=== PATIENT | female | born 1950 | race Caucasian/White ===

== ENCOUNTER 2022-01-16 09:42 | Inpatient (IN) | payer MEDICARE, OTHER ==
[~2022-01-16] VITALS: Ht 157.5 cm; Wt 96.7 kg
--- NOTE | 2022-01-16 15:37 | NUR ---
PT TO MED-SURG VIA STRETCHER STANDS TO TRANSFER TO BED. FRESH H20 AT BEDSIDE ALONG WITH KLEENEX AND OTHER COMFORT ITEMS. PT ORIENTED TO ROOM AND CALL BUTTON. AGREES TO CALL FOR ANY NEEDS.
--- NOTE | 2022-01-16 16:58 | NUR ---
PT DENIES PAIN IN INDEX FINGER. ASSISTED INTO A SLING FOR ELEVATION. CALL LIGHT AND NEEDED ITEMS IN REACH.
--- NOTE | 2022-01-16 17:39 | NUR ---
PT SITTING UP WITH EVENING MEAL CONTINUES TO DENY NEED OF PAIN MEDICATIONS ARM REMAINS IN SLING WITH HAND ELEVATED. CALL LIGHT AND NEEDED ITEMS IN REACH. PT UP TO TOILET INDEPENDANTLY EARLIER SHE IS STEADY ON HER FEET AND ORIENTED X4
--- NOTE | 2022-01-16 23:20 | NUR ---
Patient appears to be sleeping. RUE remains elevated by pillow sling. Saline locked. Call light within reach. Will continue to monitor.
--- NOTE | 2022-01-17 00:53 | NUR ---
PT RESTING IN BED WITH EYES CLOSED. RESPIRATIONS EVEN. CALL LIGHT IN REACH.
--- NOTE | 2022-01-17 01:50 | NUR ---
PT AWAKE UPON ENTERING ROOM. RUE IN PILLOW SLING. PT REPORTS SX IMPROVING WITH ELEVATION. PT DENIES PAIN. ASSISTED TO REPOSITION FOR COMFORT. VS AND I&O OBTAINED. IV ABX INFUSING WNL. NO FURTHER NEEDS.
--- NOTE | 2022-01-17 04:20 | NUR ---
PT RESTING IN BED. EYES CLOSED. RUE ELEVATED IN PILLOW SLING. CALL LIGHT IN REACH.
--- NOTE | 2022-01-17 06:40 | NUR ---
VS AND I&O COMPLETE. PT WITH RUE ELEVATED IN PILLOW SLING. DENIES PAIN. CMS INTACT. ASSISTED TO REPOSITION FOR COMFORT. NO FURTHER NEEDS AT THIS TIME. CALL LIGHT IN REACH.
--- NOTE | 2022-01-17 07:46 | NUR ---
PT AWAKE AND INTERACTIVE AT TIME OF SHIFT REPORT. SITTING UP IN BED ARM IN SLING. DR FITZPATRICK IN TO SEE PT GIVES HER EXERCISES TO DO SHE STATES SHE IS DOING THEM ONCE AN HOUR. PT STATES FINGER IS MUCH IMPROVED, THIS POOL HAND CAN SEE SWELLING AND REDNESS HAVE DECREASED A GOOD DEAL. PT AGREE IT IS SORE BUT STATES IT IS NOT PAINFUL, SHE DOES NOT WANT ANY PAIN MEDICATIONS. FRESH H20 TO BEDSIDE CALL LIGHT IN REACH DENIES OTHER NEEDS
--- NOTE | 2022-01-17 09:34 | NUR ---
IV SITE INFILTRATED ABX HAVE NOT INFUSED FOR 0800 DOSE. REPORTED TO PHARMACY, NEED TO RE-TIME ABX DENIED. NEW IV SITE TO BE ESTABLISHED
--- NOTE | 2022-01-17 11:20 | NUR ---
PT OFFERED SHOWER SHE REFUSES STATING SHE WILL GO HOME TOMORROW AND WOULD RATHER WAIT. ARM IS IN SLING AND SHE CONTINUES TO DO EXERCISES INSTRUCTED BY MD. PT DESCRIBES HER URINE DARK AND FOUL SHE IS INCREASING H20 INTAKE. NO C/O DYSURIA OR OTHER URINARY ABNORMALITIES
--- NOTE | 2022-01-17 15:00 | NUR ---
DR FITZPATRICK NOTIFIED PT BP IS ELEVATED AT 135/101. SHE REPORTS INCREASED PAIN IN HER FINGER (REFUSES OFFER OF PAIN MED) STATES SHE IS WORRIED ABOUT HER AND ANXIOUS TO GET OUT OF THE HOSPITAL. DISCUSSED EFFECTS OF THESE FACTORS ON BP WITH PT AND AGAIN OFFERED PAIN RELIEF. SHE IS USING ICE AT THIS TIME. NO ORDERS FROM DR FITZPATRICK
--- NOTE | 2022-01-17 17:17 | NUR ---
PT UP TO THE TOILET STEADY ON HER FEET RETURNS TO RESTING IN BED WITH HAND ELEVATED. URINE HAS CLEARED AND IS LIGHT YELLOW AT THIS TIME. PT REPORTS HER FINGER NO LONGER HURTS SHE STATES SHE MIGHT HAVE OVER DONE THE EXERCISES DOC GAVE HER.
[2022-01-17] MEDS ORDERED: MULTI VITAMIN1 EACH PO (17:23)
--- NOTE | 2022-01-17 17:28 | NUR ---
MED REC COMPLETE
--- NOTE | 2022-01-17 22:06 | NUR ---
At approximately 1915, this nurse met w/patient at bedside. Pt. calm and pleasant. Claimed small amount of pain in right hand, but refused pain medication. Right hand appears duller red and less swollen compared to previous shift. Fully A&0. Respirartory WNL. Denies nausea. Bowel sounds active.
--- NOTE | 2022-01-18 04:26 | NUR ---
Pt. kept RUE in pillow case sling throughout shift. Pain remained consistently at 3/10. Redness and swelling of right hand remained unchanged. Patient remains independent in room. Saline locked in left AC. Blood pressures have remained stable. Will continue to monitor.
--- NOTE | 2022-01-18 07:36 | NUR ---
REPORT RECIEVED. PT IN [place] PRECAUTIONS. CALL LIGHT IN REACH.
--- NOTE | 2022-01-18 10:10 | NUR ---
ASSESSMENT COMPLETEED. PT RIGHT HAND IN PILLOW SLING. PT DENIES PAIN. SWELLING AND REDNESS IMPROVING. ALL OTHER ASSESSMENT WNL. BREAKFAST AT BEDSIDE. CALL LIGHT IN REACH. DENIES NEEDS.
--- NOTE | 2022-01-18 11:45 | NUR ---
Spoke with April. She denies needs. 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 Hand cont. with red swollen finger with elevation. Pt states she os bored. Denies complaints. Plans on dc to home with her spouse when she can transition to Po antibiotics from IV.
--- NOTE | 2022-01-18 12:30 | NUR ---
ROUNDED ON PT. NO CONCERS/PAIN. EATING LUNCH NOW. CALL LIGHT IN REACH. ARM STILL IN PILLOW SLING
--- NOTE | 2022-01-18 14:30 | NUR ---
ROUNDED ON PT. ABX STARTED AND TORIDOL ADMISNTERED. ASSESSMENT COMPLETED. NO CHANGES. PAIN 3/10 ONLY WITH MOVEMENT. NO OTHER CONCERNS. CALL LIGHT IN REACH
--- NOTE | 2022-01-18 18:38 | NUR ---
ROUNDED ON PT. DENIES NEEDS OT PAIN. UP TO BATHROOM INDEPENDENTLY. CALL LIGHT IN REACH.
--- NOTE | 2022-01-18 19:55 | NUR ---
Pt. A&O. In bed. Claims pain to be tolerable, rates 3/10. RUE in pillow case sling. Denies needs at this time. Call light within reach.
--- NOTE | 2022-01-19 04:19 | NUR ---
Patient continues to experience decreased swelling in right index finger. Able to flex distal joint of finger. Claims pain is subsiding. Redness is decreasing. No PRN pain meds have been needed. Remains independent in room. On RA. IV access in left AC is patent/saline locked.
--- NOTE | 2022-01-19 06:35 | NUR ---
In bed. RUE in pillow sling. Denies needs. Call light within reach.
--- NOTE | 2022-01-19 07:11 | NUR ---
REPORT RECEIVED FROM KAREN KOENIG. PT RESTING IN BED ON BACK WITH EYES CLOSED, RESPIRATIONS EVEN AND UNLABORED, HEAD OF BED ELEVATED TO 25 DEGRESS. RIGHT ARM IN PILLOW SLING. PT ALLOWED TO REST. CALL LIGHT WITHIN REACH, BED RAILS UP.
[2022-01-19] MEDS ORDERED: KETOROLAC TROME10 MG PO (08:12)
[2022-01-19] MEDS ORDERED: AMOX TR-K CLV1 EAC1 PO (08:12)
--- NOTE | 2022-01-19 09:04 | NUR ---
MORNING ASSESSMENT AND MEDICATION DUE. PT RESTING IN BED, PT REPORTS SHE SPOKE WITH DR. FITZPATRICK AND IS READY FOR DISCHARGE. PT REPORST 2/10 PAIN IN RIGHT INDEX FINGER THAT IS WELL CONTROLED. SCHEDULED MEDICATION GIVEN. PT REPORTS SHE CAN TELL THE MEDICATION IS HELPING BECAUSE "I CAN BEND MY FINGER MORE SMOOTHLY NOW." PT ALERT AND OREINTED TO ALL. PT INDEPENDANT IN ROOM AND STEADY ON FEET. LUGN SOUNDS CLEAR. PT REPORTS NO COUGH. OXGYEN SATURATION 98% ON ROOM AIR. HEART TONES REGULAR. PT REPROTS SENSATION TO RIGHT HAND IS INTACT. REDNESS CONTINUES TO RIGHT INDEX FINGER AND PALM. CMS INTACT AND PT STATES REDNESS HAS "REALLY GOTTEN A LOT BETTER." ARM ELEVATED IN PILLOW SLING. PT VERBALIZES UNDERSTANDING OF ICE AND ELEVATION AT HOME. ABDOMEN SOFT AND NON TENDER. BOWEL TONES ACTIVE. IV DC'D PER PROTOCOL. PT UP TO DRESS SELF. NO ASSISTANCE NEEDED. NO ADDITONAL REQUSTS OR COMPLAINTS. CALL LIGHT WITHIN REACH. BED RAILS UP.
--- NOTE | 2022-01-19 10:00 | NUR ---
PT READY FOR DISCHRAGE. PT STATES SHE HAS CALLED HER AND HE IS WAITING OUT FRONT. PT STATES SHE SPOKE WITH PHARMACIST REGARDING HER MEDICAITONS AND CABRAL HER QUESTIONS HAVE BEEN ANSWERED. DISCHARGE INSTRUCTIONS REVIEWED WITH PT. PT VERBAZLIES UNDERSTANDING OF INSTRUCTIONS, MEDICATIONS, ICE/ELEVATION, AND FOLLOW UP AND STATES HER QUESTIONS HAVE BEEN ANSWERED. PT TRANSFERSE SELF TO WHEELCHAIR. PT WHEELED FROM MED/SURG TO MEET AT FRONT OF HOSPITAL. NO ADDITIONAL REQUESTS OR CONCERNS.
== END 2022-01-19 10:00 | disposition home or self-care (01) | DRG 602 ==
LOC: ED 09:42 → MS 09:44
PROVIDERS: ADMIT Specialist; ATTEND Specialist
PROC: 3E03329 Introduction of Other Anti-infective into Peripheral Vein, Percutaneous Approach (ICD-10-PCS; 2022-01-16)
PROC: 8E0ZXY6 Isolation (ICD-10-PCS; principal; 2022-01-18)
DX: L03.011 Cellulitis of right finger (principal); U07.1 COVID-19
CPT/HCPCS: 36415; 80048; 85025; 87502; 90471; 90715; 96374; 99284-25; C9803; J0295; J1885; U0003